=== PATIENT | male | born 1945 ===

== ENCOUNTER → 2017-08-30 | Outpatient (CLI) | payer OTHER | END | disposition home or self-care (01) | LOC: C.LABFOXMH 08:24 | PROVIDERS: ATTEND Internal Medicine Hospice and Palliative Medicine | DX: E03.9 Hypothyroidism, unspecified (principal); E78.00 Pure hypercholesterolemia, unspecified; R97.20 Elevated prostate specific antigen [PSA] ==

== ENCOUNTER → 2017-10-30 | Outpatient (CLI) | payer OTHER | END | disposition home or self-care (01) | LOC: C.LABFOXMH 08:00 | PROVIDERS: ATTEND Urology | DX: N40.0 Benign prostatic hyperplasia without lower urinary tract symptoms (principal) ==

== ENCOUNTER → 2017-11-09 | Outpatient (CLI) | payer OTHER ==
[2017-11-09 08:34] LABS: BLOOD UREA NITROGEN 17 mg/dl (7-18); CREATININE 0.89 mg/dl (0.60-1.40)
== END | disposition home or self-care (01) ==
LOC: C.LABFOXMH 07:57
PROVIDERS: ATTEND Urology
DX: R97.20 Elevated prostate specific antigen [PSA] (principal)

== ENCOUNTER → 2017-11-19 | Outpatient (CLI) | payer OTHER, MEDICARE ==
[~2017-11-19] MED LIST: GADAVIST IV PRN
--- NOTE | 2017-11-21 09:50 | DIAGNOSTIC IMAGING REPORT ---
PROSTATE MRI COMBO CLINICAL HISTORY: Elevated PSA of 13.2. TECHNIQUE: Multisequence, multiplanar MR imaging of the prostate was performed before and after the intravenous administration of 7.5 cc of Gadavist. Additional postprocessing was performed on a separate [employer] workstation by the radiologist for 3-D volumetric segmentation of the prostate and contouring of region(s) of interest (VIANNEY) for targeting. COMPARISON: None. FINDINGS: Prostate: The prostate measures 5.7 x 4.2 x 5.4 cm cm (DynaCAD prostate boundary segmentation volume 56.10 mL). Moderate changes of benign prostatic hyperplasia. Precontrast T1 weighted imaging demonstrates no evidence of intrinsic T1 hyperintensity to suggest hemorrhage. Suspicious lesion(s) described below: Lesion (DynaCAD VIANNEY) 1: There is a 1.8 x 0.4 x 0.9 cm lenticular shaped T2 hypointense focus which demonstrates markedly diminished signal intensity on the ADC sequence with marked hyperintensity on the diffusion-weighted sequence within the left mid anterior peripheral zone possibly extending into the left anterior stroma. This lesion demonstrates hypervascularity. This is considered a PI-RADS 5 lesion. DynaCAD VIANNEY 2: In addition, there is a 0.7 x 0.4 x 0.6 cm focus of restricted diffusion with markedly hypointense signal on the ADC sequence within the right mid anterior transitional zone. This is difficult to visualize on the T2-weighted sequence. This is considered a PI-RADS 4 lesion. Seminal vesicles normal. Bladder: Normal. Bowel: Visualized portion of the rectum normal. Peritoneum: No free fluid in the pelvis. Lymph nodes: No lymphadenopathy in the visualized portion of the pelvis. Vasculature: Iliac vessels patent. Abdominal wall: Normal. Osseous structures: Normal bone marrow signal intensity. IMPRESSION: 1. 1.8 x 0.9 x 0.9 cm T2 hypointense focus with marked restricted diffusion within the left mid anterior peripheral zone possibly extending into the left anterior stroma. This is considered a PI-RADS 5 lesion: Clinically significant cancer is highly likely to be present. This lesion has been segmented for targeted biopsy ([employer] VIANNEY 1). 2. 0.7 x 0.4 x 0.6 cm focus of restricted diffusion within the right anterior transitional zone which is difficult to visualize on the T2-weighted sequence. This is considered a PI-RADS 4 lesion: Clinically significant cancer is likely to be present. This lesion has been segmented for targeted biopsy (DynaCAD VIANNEY 2). 3. Moderate prostatic hyperplasia. Electronically signed by: Mo Howard M.D. 11/21/2017 9:49 AM Dictated Date/Time: 11/21/2017 7:57 AM
== END | disposition home or self-care (01) ==
LOC: C.MRIBC 11:09
PROVIDERS: ATTEND Urology
DX: R97.20 Elevated prostate specific antigen [PSA] (principal); N40.0 Benign prostatic hyperplasia without lower urinary tract symptoms

== ENCOUNTER → 2017-12-11 | Outpatient (CLI) | payer OTHER, MEDICARE | END | disposition home or self-care (01) | LOC: C.PATHSPEC 17:07 | PROVIDERS: ATTEND Urology | DX: C61 Malignant neoplasm of prostate (principal); R97.20 Elevated prostate specific antigen [PSA] ==